=== PATIENT | female | born 1945 | race Caucasian/White ===

== ENCOUNTER 2017-05-04 19:21 | Emergency (ER) | payer MEDICARE, OTHER ==
[2017-05-04 19:29] VITALS: BP 170/89
[2017-05-04] MEDS ORDERED: Ibuprofen TAB* 600 MG PO ONE (20:04)
--- NOTE | 2017-05-04 20:18 | UC ---
Elbow Pain - HPI Summary HPI Summary: Fell backward from a standing position and hit R elbow on a handle. Open bleeding wound, sore joint. Did not hit head, no neck/back pain, no other injuries that she can feel. - History of Current Complaint Chief Complaint: UCLaceration Stated Complaint: ELBOW LAC FROM FALL Time Seen by Provider: 05/04/17 19:57 Hx Obtained From: Patient ?: No Onset/Duration: Traumatic Severity Initially: Moderate Severity Currently: Moderate Location Of Pain: Is Discrete @ Character: Dull, Aching, Stiffness Alleviating Factor(s): Rest, Immobilization - Allergies/Home Medications Allergies/Adverse Reactions: Allergies Allergy/AdvReac Type Severity Reaction Status Date / Time bee stings Allergy Intermediate Swelling Uncoded 05/04/17 19:29 PMH/Surg Hx/FS Hx/Imm Hx Cancer History: Breast Cancer - Surgical History Surgical History: Yes Surgery Procedure, Year, and Place: appendectomy; mastectomy and reconstruction Left breast; T & A; toe surgery bilat - Family History Known Family History: Positive: Hypertension - Social History Lives: With Family Alcohol Use: Occasionally Substance Use Type: None Smoking Status (MU): Never Smoked Tobacco - Immunization History Most Recent Tetanus Shot: <5 YEARS ( OF 05/04/17) Review of Systems Constitutional: Negative Skin: Other - R elbow lac Eyes: Negative ENT: Negative Respiratory: Negative Cardiovascular: Negative Gastrointestinal: Negative Genitourinary: Negative Motor: Negative Neurovascular: Negative Musculoskeletal: Arthralgia Neurological: Negative Psychological: Negative All Other Systems Reviewed And Are Negative: Yes Physical Exam Triage Information Reviewed: Yes Appearance: No Pain Distress, Well-Nourished Vital Signs: Initial Vital Signs Temp 97.7 F 05/04/17 19:23 Pulse 67 05/04/17 19:23 Resp 16 05/04/17 19:23 BP 170/89 05/04/17 19:23 Pulse Ox 100 05/04/17 19:23 Vital Signs Reviewed: Yes Eye Exam: Normal, Other - PERRL Eyes: Positive: Conjunctiva Clear ENT Exam: Normal ENT: Positive: Normal ENT inspection, Hearing grossly normal, Pharynx normal, TMs normal Dental Exam: Normal Neck exam: Normal Respiratory Exam: Normal Respiratory: Positive: Chest non-tender, Lungs clear, Normal breath sounds, No respiratory distress, No accessory muscle use Cardiovascular Exam: Normal Cardiovascular: Positive: RRR, No Murmur Musculoskeletal: Positive: ROM Limited @ - R elbow can extend to 160 deg, only bend to about 90 deg Neurological Exam: Normal Neurological: Positive: Alert Psychological Exam: Normal Skin Exam: Other - 2 linear lacerations to R elbow, 1.5cm and 3cm Procedures - Laceration/Wound Repair 1 Location: upper extremity Description: Linear Length, Depth and Shape: 1.5cm x 0mm x 0mm after closure Laceration/Wound Explored: clean Closure: SteriStrips 2 Location: upper extremity Description: Linear Length, Depth and Shape: 3cm x 0mm x 0mm Betadine Prep?: No - steristrips Laceration/Wound Explored: clean Closure: SteriStrips Elbow Pain Course/Dx - Differential Dx/Diagnosis Provider Diagnoses: R elbow proximal ulnar avulsion fracture open, nondisplaced. R elbow lacerations, steristrips Discharge - Discharge Plan Condition: Stable Disposition: HOME Patient Education Materials: Elbow Fracture (ED), Steristrips (ED) Referrals: Daniel Jade MD [Medical Doctor] - 4 Days Additional Instructions: Please call the orthopedics office first thing Sunday to arrange for a follow- up early next week. take your antibiotics as prescribed, and wear the sling as needed. You may take the sling off and move the elbow, but try not to use the R arm for any work or carrying.
[2017-05-04] MEDS ORDERED: Cephalexin CAP* 500 MG PO ONE (20:33)
[2017-05-04] MEDS ORDERED: Benzoin Compound STICK ONE (20:36)
--- NOTE | 2017-05-04 20:43 | RAD ---
INDICATION: Right elbow injury COMPARISON: None TECHNIQUE: AP, lateral, and oblique views were obtained. FINDINGS: There is a small avulsion fracture from the coronoid process. This is age indeterminate. There are irregularities about the medial and lateral epicondyles most consistent with epicondylitis. The elbow articulates normally. There is no fat-pad displacement. IMPRESSION: AGE-INDETERMINATE AVULSION FRACTURE FROM THE CORONOID PROCESS. EPICONDYLITIS.
== END 2017-05-04 21:14 | disposition home or self-care (01) ==
LOC: UCEAST 19:21
DX: S52.04 Fracture of coronoid process of ulna (principal); M77.11 Lateral epicondylitis, right elbow; W19.XXXA Unspecified fall, initial encounter; Y93.9 Activity, unspecified; Y92.9 Unspecified place or not applicable; Z85.3 Personal history of malignant neoplasm of breast; Z90.12 Acquired absence of left breast and nipple; Z91.030 Bee allergy status
CPT/HCPCS: 99213; A9270-GY; G0463

== ENCOUNTER → 2017-08-29 10:09 | Day surgery (SDC) | payer MEDICARE, OTHER ==
[~2017-08-29 10:09] MED LIST: Acetaminophen TAB* 325 MG PO PRN; Buffered Lidocaine 0.9% SYRIN* 5 ML/SYR SYRINGE INTRADERM ONE; Buffered Lidocaine 0.9% SYRIN* 5 ML/SYR SYRINGE ONE; Cyclopentolate 1% OPTH.SOL* 2 ML BTL ONE; Ketorolac 0.5% OPHTH (NF) 0.5 % 5 ML BTL ONE; Lidocaine 2% EPI 1:200000 MPF* 20 ML VIAL ONE; Midazolam* 1 MG/ML 5 ML VIAL (5 MG) ONE; Neomycin/Polymy/Dex OPTH.SUSP* MAXITROL 0.1% 5 ML ONE; Phenylephrine 2.5% OPTH.SOL* 2 ML BTL ONE; Povidone Iodine 5% OPTH* 30 ML BTL ONE; Proparacaine 0.5% OPHTH.SOL* 15 ML BTL ONE; acetaZOLAMIDE TAB* 250 MG ONE
[2017-08-29 13:31] VITALS: BP 143/72
--- NOTE | 2017-08-30 03:24 | OP ---
OPERATIVE NOTE: DATE OF OPERATION: 08/29/17 DATE OF : 41 SURGEON: Darinel Salmeron M.D. PREOPERATIVE DIAGNOSIS: Cataract, right eye. POSTOPERATIVE DIAGNOSIS: Cataract, right eye. OPERATIVE PROCEDURE: Extracapsular cataract extraction with intraocular lens implant, right eye. DESCRIPTION OF PROCEDURE: The patient was brought to the operating room after being given 1/2% Alcai ne with epinephrine drops in the preoperative area. The eye was prepped and draped in the usual ster ile fashion. Sterile drape and eyelid speculum were placed. Again, topical 1/2% Alcaine with epinep hrine was given. A paracentesis incision was made at the 3 o'clock position with the No.75 blade. Cl ear cornea incision 2.2 x 2.2-mm was created at the 6 o'clock position starting at the anterior limbu s using the 2.2-mm keratome. The anterior chamber was irrigated with 0.4 mL of 1% non-preservative i ntracameral lidocaine and filled with DisCoVisc. A capsulorrhexis was completed using the cystotome and the Utrata forceps. Hydrodissection was performed with balanced salt solution. The lens nucleus was removed with the Phacoemulsification handpiece without incident. Cortex was removed with the irr igation-aspiration handpiece. The capsular bag was re-inflated using DisCoVisc and an [id number] 23.5 im plant was inserted with the shooter, oriented to 1 degree. Horizontal reference roy were made with the patient in a seated position in the preoperative area. The irrigation-aspiration handpiece was used to remove all residual DisCoVisc. The eye was refilled with balanced salt solution and the woun d checked and found to be watertight. Topical Maxitrol drops were given. [id number]/[facility] #: [id number]
== END | disposition home or self-care (01) ==
LOC: OREAST 10:09
PROVIDERS: ATTEND Specialist
PROC: 08RJ3JZ Replacement of Right Lens with Synthetic Substitute, Percutaneous Approach (ICD-10-PCS; principal; 2017-08-29 12:15)
DX: H25.811 Combined forms of age-related cataract, right eye (principal); H52.221 Regular astigmatism, right eye; H40.053 Ocular hypertension, bilateral; E78.2 Mixed hyperlipidemia; Z85.3 Personal history of malignant neoplasm of breast
CPT/HCPCS: A9270-GY; J2250; V2787

== ENCOUNTER 2017-09-05 06:50 | Day surgery (SDC) | payer MEDICARE, OTHER ==
[~2017-09-05 06:50] MED LIST changes: -Buffered Lidocaine 0.9% SYRIN* 5 ML/SYR SYRINGE ONE; -Cyclopentolate 1% OPTH.SOL* 2 ML BTL ONE; -Ketorolac 0.5% OPHTH (NF) 0.5 % 5 ML BTL ONE; -Lidocaine 2% EPI 1:200000 MPF* 20 ML VIAL ONE; -Midazolam* 1 MG/ML 5 ML VIAL (5 MG) ONE; -Neomycin/Polymy/Dex OPTH.SUSP* MAXITROL 0.1% 5 ML ONE; -Phenylephrine 2.5% OPTH.SOL* 2 ML BTL ONE; -Povidone Iodine 5% OPTH* 30 ML BTL ONE; -Proparacaine 0.5% OPHTH.SOL* 15 ML BTL ONE; -acetaZOLAMIDE TAB* 250 MG ONE
[2017-09-05] MEDS ORDERED: Midazolam* 1 MG/ML 2 ML VIAL (2 MG) ONE (08:11)
[2017-09-05] MEDS ORDERED: fentaNYL* 50 MCG/ML 2 ML VIAL (100 MCG VIAL) ONE (08:31)
--- NOTE | 2017-09-05 09:04 | OP ---
OPERATIVE NOTE: DATE OF OPERATION: 09/05/17 DATE OF : 41 SURGEON: Darinel Salmeron M.D. PREOPERATIVE DIAGNOSIS: Cataract, left eye. POSTOPERATIVE DIAGNOSIS: Cataract, left eye. OPERATIVE PROCEDURE: Extracapsular cataract extraction with intraocular lens implant, left eye with IOL. PROCEDURE: The patient was brought to the operating room after being given 1/2% Alcaine with epineph rine drops in the preoperative area. The eye was prepped and draped in the usual sterile fashion. S terile drape and eyelid speculum were placed. Again, topical 1/2% Alcaine with epinephrine was given . A paracentesis incision was made at the 3 o'clock position with the No.75 blade. Clear cornea inc ision 2.2 x 2.2-mm was created at the 6 o'clock position starting at the anterior limbus using the 2. 2-mm keratome. The anterior chamber was irrigated with 0.4 mL of 1% non-preservative intracameral li docaine and filled with DisCoVisc. A capsulorrhexis was completed using the cystotome and the Utrata forceps. Hydrodissection was performed with balanced salt solution. The lens nucleus was removed wi th the Phacoemulsification handpiece without incident. Cortex was removed with the irrigation-aspira tion handpiece. The capsular bag was re-inflated using DisCoVisc and an [id number] implant was insert ed with the shooter. The irrigation-aspiration handpiece was used to remove all residual DisCoVisc. The eye was refilled with balanced salt solution and the wound checked and found to be watertight. Topical Maxitrol drops were given. [id number]/[facility] #: [id number]
[2017-09-05 09:29] VITALS: BP 111/67
[2017-09-05] MEDS ORDERED: Neomycin/Polymy/Dex OPTH.SUSP* MAXITROL 0.1% 5 ML ONE (13:00)
[2017-09-05] MEDS ORDERED: Lidocaine 2% EPI 1:200000 MPF* 20 ML VIAL ONE (13:00)
[2017-09-05] MEDS ORDERED: Proparacaine 0.5% OPHTH.SOL* 15 ML BTL ONE (13:00)
[2017-09-05] MEDS ORDERED: Povidone Iodine 5% OPTH* 30 ML BTL ONE (13:00)
[2017-09-05] MEDS ORDERED: Ketorolac 0.5% OPHTH (NF) 0.5 % 5 ML BTL ONE (13:00)
[2017-09-05] MEDS ORDERED: Lidocaine 1% MPF* 2 ML VIAL ONE (13:00)
[2017-09-05] MEDS ORDERED: Cyclopentolate 1% OPTH.SOL* 2 ML BTL ONE (13:00)
[2017-09-05] MEDS ORDERED: acetaZOLAMIDE TAB* 250 MG ONE (13:00)
[2017-09-05] MEDS ORDERED: Phenylephrine 2.5% OPTH.SOL* 2 ML BTL ONE (13:00)
== END 2017-09-05 09:05 | disposition home or self-care (01) ==
LOC: OREAST 06:50
PROVIDERS: ATTEND Specialist
DX: H25.812 Combined forms of age-related cataract, left eye (principal); H40.053 Ocular hypertension, bilateral; F41.8 Other specified anxiety disorders; H52.229 Regular astigmatism, unspecified eye; H52.00 Hypermetropia, unspecified eye; H10.45 Other chronic allergic conjunctivitis; M19.90 Unspecified osteoarthritis, unspecified site; Z85.3 Personal history of malignant neoplasm of breast
CPT/HCPCS: A9270-GY; J2250; J3010; V2632